=== PATIENT | female | born 1995 | race Caucasian/White ===

== ENCOUNTER 2021-09-24 19:40 | Inpatient (IN) | payer OTHER ==
[2021-09-24 20:05] VITALS: BMI 27.7
[2021-09-24] MEDS ORDERED: hydrALAZINE 20 MG/ML VIAL SLOW IVP PRN ×2 (20:35→21:20)
[2021-09-24 20:56] LABS: Fetal Membranes Rupture RUPTURE DETECTED (No Rupture)
[2021-09-24] MEDS ORDERED: Acetaminophen 500 MG TAB PO PRN (21:20)
[2021-09-24] MEDS ORDERED: HYDROcodone/Acetaminophen 5/325 mg Tablet PO PRN (21:20)
[2021-09-24] MEDS ORDERED: Ondansetron PF 4 MG/2 ML Vial IVP PRN (21:20)
[2021-09-24] MEDS ORDERED: Lidocaine 1% (PF) 30 ML VIAL SC PRN (21:20)
[2021-09-24] MEDS ORDERED: Ibuprofen 800 MG TAB PO PRN (21:20)
[2021-09-24] MEDS ORDERED: NS w/ Oxytocin 30 units 500 ML IV SCH (21:30)
[2021-09-24] MEDS ORDERED: Lactated Ringer's 1,000 ML IV SCH (21:30)
[2021-09-24] MEDS ORDERED: Misoprostol 100 MCG TAB PO PRN (22:00)
[2021-09-24 22:01] LABS: Hemoglobin 10.7 g/dL (12.0-15.5); Mean Corpuscular HGB CONC 33.4 g/dL (32.0-36.0); Mean Corpuscular Hemoglobin 29.6 pg (27.0-33.0); Mean Corpuscular Volume 88.4 fl (81.6-98.3); Mean Platelet Volume 10.8 fl (7.4-10.4); Platelet Count 292 10x3/uL (150-450); RBC Distribution Width 12.9 % (11.5-14.5); Red Blood Cell (RBC) Count 3.62 10x6/uL (3.90-5.03); White Blood Cell (WBC) Count 11.1 10x3/uL (3.5-10.5)
[2021-09-24 22:44] LABS: Hep B Surf Ag Non-Reactive S/CO (NonReactive)
[2021-09-24 22:45] LABS: Syphilis Antibody Nonreactive (Nonreactive); Syphilis Antibody Index 0.09 S/CO (<1.00 Non-Reactive)
[2021-09-24 22:54] LABS: HBSAg Index 0.18 S/CO (0-0.99)
[2021-09-25] MEDS: Butorphanol Tartrate 1 MG/ML VIAL SLOW IVP PRN ×2 (07:21→11:37)
[2021-09-25 07:25] LABS: HIV (1/2) Antibody/Antigen Non-Reactive (NonReactive); HIV 1/2 INDEX 0.07 S/CO (<1.00)
[2021-09-25 13:18] LABS: SARS-CoV-2 NAA Rapid Test Not Detected (NotDetected)
[2021-09-25] MEDS: Lactated Ringer's 1,000 ML IV SCH (16:49)
[2021-09-25] MEDS ORDERED: Naloxone HCl 0.4 mg/ml Vial IVP PRN ×4 (17:38→22:26)
[2021-09-25] MEDS ORDERED: Lactated Ringer's 500 ML IV PRN (17:38)
[2021-09-25] MEDS ORDERED: Ondansetron PF 4 MG/2 ML Vial IVP PRN ×3 (17:38→22:26)
[2021-09-25] MEDS ORDERED: Promethazine HCl 25 MG/ML VIAL IM PRN ×3 (17:38→22:26)
[2021-09-25] MEDS ORDERED: Hydrocerin (Eucerin) Cream 120 gm Jar TOP PRN ×2 (17:38→22:26)
[2021-09-25] MEDS ORDERED: diphenhydrAMINE 50 MG/ML VIAL IVP PRN ×2 (17:38→22:26)
[2021-09-25] MEDS ORDERED: ePHEDrine Sulfate 50 MG/10 ML VIAL SLOW IVP PRN (17:38)
[2021-09-25] MEDS ORDERED: Acetaminophen 325 MG TAB PO PRN (17:38)
[2021-09-25] MEDS ORDERED: Communication Order-Pharmacy FS SCH ×2 (17:45→22:30)
[2021-09-25] MEDS ORDERED: Fentanyl 2 mcg/Bupivacaine 0.1% Cassette 100 ML EPIDURAL SCH (17:45)
[2021-09-25] MEDS ORDERED: Famotidine/PF 20 mg/2ml Vial SLOW IVP PRN (19:25)
[2021-09-25] MEDS ORDERED: Bicitra 30 ML UDCUP PO PRN (19:25)
[2021-09-25] MEDS ORDERED: Azithromycin 500 MG VIAL ONE (19:27)
[2021-09-25] MEDS ORDERED: CEFAZOLIN 2 GM in Premix Bag 1 BAG IVPB SCH (19:30)
[2021-09-25] MEDS ORDERED: Azithromycin 500 MG in Sodium Chloride 0.9% 250 ML 250 ML IVPB SCH (19:30)
[2021-09-25] MEDS ORDERED: Ondansetron PF 4 MG/2 ML Vial ONE (20:01)
[2021-09-25] MEDS ORDERED: Dexamethasone 4 mg/ml Vial ONE ×2 (20:01→21:09)
[2021-09-25] MEDS ORDERED: Morphine PF 10 MG/10 ML VIAL ONE (20:01)
[2021-09-25] MEDS ORDERED: Ketorolac Tromethamine 30 MG/ML VIAL ONE (20:02)
[2021-09-25] MEDS ORDERED: Oxytocin 10 UNITS/ML VIAL ONE (20:02)
[2021-09-25] MEDS ORDERED: PHENYLEPHRINE-NS 100 MCG/ML 10 ML SYRINGE ONE (20:32)
[2021-09-25 20:58] LABS: pH (Cord, venous) 7.311 (7.250-7.350)
[2021-09-25] MEDS ORDERED: Lanolin Ointment 7 GM TUBE TOP PRN (21:26)
[2021-09-25] MEDS ORDERED: Measles/Mumps/Rubella 10 MCG/0.5 ML VIAL SC ONE (21:26)
[2021-09-25] MEDS ORDERED: Simethicone Chewable 80 MG TAB PO PRN (21:26)
[2021-09-25] MEDS ORDERED: hydrALAZINE 20 MG/ML VIAL SLOW IVP PRN (21:26)
[2021-09-25] MEDS ORDERED: diphenhydrAMINE 25 MG CAP PO PRN (21:26)
[2021-09-25] MEDS ORDERED: Misoprostol 200 MCG TAB PR PRN (21:26)
[2021-09-25] MEDS ORDERED: Methylergonovine 0.2 MG/ML VIAL IM PRN (21:26)
[2021-09-25] MEDS ORDERED: Boostrix 0.5 ML (Tdap) VIAL IM ONE (21:26)
[2021-09-25] MEDS ORDERED: Bisacodyl 10 MG SUPP PR PRN (21:26)
[2021-09-25] MEDS ORDERED: NS w/ Oxytocin 30 units 500 ML IV SCH (21:30)
[2021-09-25] MEDS ORDERED: Ibuprofen 800 MG TAB PO SCH (22:00)
[2021-09-25] MEDS ORDERED: Promethazine HCl 25 MG SUPP PR PRN (22:26)
[2021-09-25] MEDS ORDERED: Ondansetron HCl/PF 4 MG/2 ML Vial IVP PRN (22:26)
[2021-09-25] MEDS ORDERED: Naloxone HCl 0.4 mg/ml Vial IV PRN (22:26)
[2021-09-25] MEDS ORDERED: Fentanyl 100 MCG/2 ML VIAL SLOW IVP PRN (22:26)
[2021-09-25] MEDS ORDERED: L&D-Morphine 4 MG/ML VIAL SLOW IVP PRN (22:26)
[2021-09-25] MEDS ORDERED: Ketorolac Tromethamine 30 MG/ML VIAL IVP SCH (22:30)
[2021-09-26] MEDS: Lactated Ringer's 1,000 ML IV SCH ×4 (03:17→23:40)
[2021-09-26] MEDS: Ketorolac Tromethamine 30 MG/ML VIAL IVP PRN ×2 (03:18→19:34)
[2021-09-26 05:07] LABS: Hemoglobin 9.2 g/dL (12.0-15.5); Mean Corpuscular HGB CONC 33.1 g/dL (32.0-36.0); Mean Corpuscular Hemoglobin 29.2 pg (27.0-33.0); Mean Corpuscular Volume 88.3 fl (81.6-98.3); Mean Platelet Volume 10.6 fl (7.4-10.4); Platelet Count 248 10x3/uL (150-450); RBC Distribution Width 13.1 % (11.5-14.5); Red Blood Cell (RBC) Count 3.15 10x6/uL (3.90-5.03); White Blood Cell (WBC) Count 18.2 10x3/uL (3.5-10.5)
[2021-09-26] MEDS ORDERED: HYDROcodone/Acetaminophen 5/325 mg Tablet PO PRN ×2 (10:30)
[2021-09-26] MEDS ORDERED: Zolpidem Tartrate 5 MG TAB PO PRN (10:30)
[2021-09-26] MEDS: Ferrous Sulfate 325 MG TAB PO SCH ×2 (10:44→19:06)
[2021-09-26] MEDS: Docusate 100 MG CAP PO SCH ×2 (14:49→22:04)
[2021-09-26] MEDS: Prenatal Vitamin 1 TAB PO SCH (14:50)
[2021-09-27] MEDS: Ibuprofen 800 MG TAB PO SCH ×2 (05:00→14:16)
[2021-09-27] MEDS: Lactated Ringer's 1,000 ML IV SCH ×2 (05:36→14:15)
[2021-09-27] MEDS: Ferrous Sulfate 325 MG TAB PO SCH (08:32)
[2021-09-27] MEDS: Prenatal Vitamin 1 TAB PO SCH (08:32)
[2021-09-27] MEDS: Docusate 100 MG CAP PO SCH (08:36)
[2021-09-27 11:44] VITALS: BP 113/70; TEMP 98.4
== END 2021-09-27 16:35 | disposition home or self-care (01) | DRG 788 ==
LOC: CSHLD/OP 19:40 → CSHLD 19:41 → CSHPP 09-26 01:15
PROVIDERS: ADMIT Obstetrics & Gynecology; ATTEND Obstetrics & Gynecology
PROC: 10D00Z1 Extraction of Products of Conception, Low, Open Approach (ICD-10-PCS; principal; 2021-09-25)
DX: O77.8 Labor and delivery complicated by other evidence of fetal stress (principal); O76 Abnormality in fetal heart rate and rhythm complicating labor and delivery; Z3A.39 39 weeks gestation of pregnancy; Z37.0 Single live birth; O99.344 Other mental disorders complicating childbirth; Z20.822 Contact with and (suspected) exposure to COVID-19; F41.8 Other specified anxiety disorders; O69.1XX0 Labor and delivery complicated by cord around neck, with compression, not applicable or unspecified
CPT/HCPCS: 51702; 82805; 84112; 85027; 86780; 86850; 86900; 86901; 87340; 87389; 99285; J0595; J1100; J1200; J1885; J2274; J2405; J2590; J7120; U0002